=== PATIENT | male | born 1965 | race Caucasian/White ===

== ENCOUNTER 2025-03-21 11:19 | Emergency (ER) | payer OTHER ==
[~2025-03-21] VITALS: Ht 165.1 cm; Wt 65.9 kg
[2025-03-21] MEDS ORDERED: LEVOTHYROXINE25 MC1 PO (11:46)
[2025-03-21] MEDS ORDERED: LIPITOR10 MG PO (11:46)
[2025-03-21] MEDS ORDERED: VITAMIN D325 MC2 PO (11:47)
[2025-03-21 11:56] LABS: ALT (SGPT) 55.0 U/L (14-59); AST (SGOT) 42.0 U/L (15-37); GLOMERULAR FILTRATION RATE,EST 64.0 mL/min (>60); PROTEIN, TOTAL 8.1 g/dL (6.4-8.2); UREA NITROGEN 10.0 mg/dL (7-18)
[2025-03-21 12:15] LABS: BASOPHILS 0.4 % (0.2-1.2); EOSINOPHILS 0.3 % (0.8-7.0); LYMPHOCYTES 5.3 % (21.8-53.1); MCH 21.0 PG (25.7-32.2); MCHC 30.2 g/dL (32.3-36.5); MCV 69.6 fL (79.0-92.2); MONOCYTES 8.8 % (5.3-12.2); NEUTROPHILS 84.7 % (34.0-67.9); RBC 4.67 M/uL (4.63-6.08)
[2025-03-21] MEDS ORDERED: SODIUM CHLORIDE 0.9% 1,000 ML IV PRN (12:15)
[2025-03-21 14:46] LABS: BLOOD/HGB, URINE LARGE (Negative); KETONE, URINE TRACE (Negative); LEUK ESTERASE, URINE TRACE (negative); NITRITE, URINE NEGATIVE (negative)
[2025-03-21 14:51] LABS: CRYSTALS, URINE NONE SEEN (0-1+); EPITHELIAL CELLS, URINE TRANSITIONAL 1+ /lpf (0-1+)
[2025-03-21 14:52] LABS: BACTERIA, URINE 1+ /hpf (negative); CASTS, URINE NONE SEEN \\lpf; REFLEX CULTURE, URINE Yes (No)
[2025-03-21] MEDS ORDERED: MORPHINE SULFATE 4 MG/ML VIAL IV ONE (15:30)
[2025-03-21] MEDS ORDERED: LIDOCAINE 2% VISCOUS 6 ML SYR TOP ONE (16:30)
[2025-04-25] MEDS ORDERED: CEFDINIR300 MG PO (03:55)
[2025-05-02] MEDS ORDERED: OXYCODONE HCL5 M1 PO (10:52)
[2025-05-02] MEDS ORDERED: CEFTRIAXONE2 G1 INJ (10:53)
[2025-05-06] MEDS ORDERED: TACTINAL325 MG PO (16:26)
[2025-05-06] MEDS ORDERED: MOTRIN IB200 MG PO (16:27)
[2025-05-06] MEDS ORDERED: FERROUS GLUCON324 M1 PO (16:31)
[2025-05-06] MEDS ORDERED: ONDANSETRON ODT8 MG PO (16:32)
[2025-05-06] MEDS ORDERED: PHENERGAN25 MG/1 M1 INJ (16:33)
[2025-05-06] MEDS ORDERED: SENNA8.6 MG PO (16:34)
[2025-05-06] MEDS ORDERED: MIRALAX119 GM PO (16:36)
[2025-05-06] MEDS ORDERED: DOCUSATE SODIU250 MG PO (16:36)
[2025-05-07] MEDS ORDERED: MEROPENEM1 GM IV ×2 (09:35→12:24)
[2025-05-16] MEDS ORDERED: TYLENOL325 MG PO (11:57)
[2025-05-16] MEDS ORDERED: OXYCODONE HCL5 M3 PO (12:05)
== END 2025-03-21 19:09 | disposition short-term general hospital (02) ==
LOC: ED 11:19
PROVIDERS: Emergency Medicine
DX: A41.9 Sepsis, unspecified organism (principal); N13.6 Pyonephrosis; C22.8 Malignant neoplasm of liver, primary, unspecified as to type; Z79.899 Other long term (current) drug therapy
CPT/HCPCS: 36415; 51702; 74177; 80053; 81001; 83605; 83690; 85025; 85060; 87040; 87077; 87088; 87186; 96365; 96375; 99291; 99292; J0696; J2270; J2405; J7030; Q9967

== ENCOUNTER 2025-04-22 02:28 | Emergency (ER) | payer OTHER ==
[~2025-04-22] VITALS: Ht 165.1 cm; Wt 72.5 kg
[~2025-04-22 02:28] MED LIST: LEVOTHYROXINE25 MC1 PO; LIPITOR10 MG PO; VITAMIN D325 MC2 PO
[2025-04-22 02:45] LABS: BASOPHILS 0.5 % (0.2-1.2); EOSINOPHILS 1.7 % (0.8-7.0); LYMPHOCYTES 5.1 % (21.8-53.1); MCH 20.2 PG (25.7-32.2); MCHC 30.0 g/dL (32.3-36.5); MCV 67.5 fL (79.0-92.2); MONOCYTES 9.7 % (5.3-12.2); NEUTROPHILS 82.3 % (34.0-67.9); RBC 4.15 M/uL (4.63-6.08)
[2025-04-22 03:00] LABS: SMEAR REVIEW BLOOD SEE COMMENTS
[2025-04-22 03:04] LABS: INR 1.28 (0.80-1.30); PROTIME 15.2 Sec (11.2-14.2)
[2025-04-22 03:05] LABS: ALT (SGPT) 27.0 U/L (14-59); AST (SGOT) 25.0 U/L (15-37); GLOMERULAR FILTRATION RATE,EST 70.0 mL/min (>60); PROTEIN, TOTAL 7.6 g/dL (6.4-8.2); UREA NITROGEN 17.0 mg/dL (7-18)
[2025-04-22 03:08] LABS: BLOOD/HGB, URINE LARGE (Negative); KETONE, URINE NEGATIVE (Negative); LEUK ESTERASE, URINE LARGE (negative); NITRITE, URINE NEGATIVE (negative)
[2025-04-22 03:08] LABS: LACTIC ACID, BLOOD 2.0 mmol/L (0.4-2.0)
[2025-04-22 03:13] LABS: EPITHELIAL CELLS, URINE SQUAMOUS 1+ /lpf (0-1+)
[2025-04-22 03:14] LABS: BACTERIA, URINE 1+ /hpf (negative); CASTS, URINE NONE SEEN \\lpf; CRYSTALS, URINE NONE SEEN (0-1+); REFLEX CULTURE, URINE Yes (No)
[2025-04-22] MEDS ORDERED: SODIUM CHLORIDE 0.9% 1,000 ML IV SCH (03:15)
[2025-04-22] MEDS ORDERED: MACROBID 100 M100 MG PO (04:24)
[2025-04-22] MEDS ORDERED: CIPRO500 MG PO (04:24)
[2025-04-22] MEDS ORDERED: NITROFURANTOIN MONOHYD MACROCR 100 MG CAP PO ONE (04:30)
[2025-04-22] MEDS ORDERED: LIDOCAINE 2% VISCOUS 6 ML SYR TOP ONE (05:00)
[2025-04-22] MEDS ORDERED: OXYCODONE/APAP 5/325 TAB PO ONE (05:00)
[2025-04-25] MEDS ORDERED: CEFDINIR300 MG PO (03:55)
[2025-05-02] MEDS ORDERED: OXYCODONE HCL5 M1 PO (10:52)
[2025-05-02] MEDS ORDERED: CEFTRIAXONE2 G1 INJ (10:53)
[2025-05-06] MEDS ORDERED: TACTINAL325 MG PO (16:26)
[2025-05-06] MEDS ORDERED: MOTRIN IB200 MG PO (16:27)
[2025-05-06] MEDS ORDERED: FERROUS GLUCON324 M1 PO (16:31)
[2025-05-06] MEDS ORDERED: ONDANSETRON ODT8 MG PO (16:32)
[2025-05-06] MEDS ORDERED: PHENERGAN25 MG/1 M1 INJ (16:33)
[2025-05-06] MEDS ORDERED: SENNA8.6 MG PO (16:34)
[2025-05-06] MEDS ORDERED: DOCUSATE SODIU250 MG PO (16:36)
[2025-05-06] MEDS ORDERED: MIRALAX119 GM PO (16:36)
[2025-05-07] MEDS ORDERED: MEROPENEM1 GM IV ×2 (09:35→12:24)
[2025-05-16] MEDS ORDERED: TYLENOL325 MG PO (11:57)
[2025-05-16] MEDS ORDERED: OXYCODONE HCL5 M3 PO (12:05)
== END 2025-04-22 05:35 | disposition home or self-care (01) ==
LOC: ED 02:28
PROVIDERS: Emergency Medicine
DX: N39.0 Urinary tract infection, site not specified (principal); C67.9 Malignant neoplasm of bladder, unspecified; Z79.899 Other long term (current) drug therapy
CPT/HCPCS: 36415; 51702; 71045; 74177; 80053; 81001; 83605; 83690; 85025; 85060; 85610; 85730; 87040; 87088; 96365; 99285-25; A4311; J0696; J7030; Q9967

== ENCOUNTER 2025-05-01 07:37 | Observation (INO) | payer OTHER ==
[~2025-05-01] VITALS: Ht 165.1 cm; Wt 72.1 kg
[~2025-05-01 07:37] MED LIST changes: +CEFDINIR300 MG PO; +CIPRO500 MG PO; +MACROBID 100 M100 MG PO
--- OUTSIDE RECORDS SUMMARY | 2025-05-01 07:38 | XMS ---
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 Shelbi has no Care Guidelines for this patient. [facility] NOTE: Visits indicate total known visits. ED/C VISIT TRACKING (12 MO.) 05/01/2025 07:[address] [facility] [place] TYPE: Emergency COMPLAINT: - URINE PROBLEM 04/25/2025 00:07 [facility] TYPE: Emergency COMPLAINT: - UTI DIAGNOSES: - Anemia, unspecified - Hypothyroidism, unspecified - Malignant neoplasm of bladder, unspecified - Other jail (current) drug therapy - Urinary tract infection, site not specified 04/22/2025 02:28 [facility] TYPE: Emergency COMPLAINT: - POSS UTI DIAGNOSES: - Lower abdominal pain, unspecified - Malignant neoplasm of bladder, unspecified - Other jail (current) drug therapy - Urinary tract infection, site not specified 03/21/2025 11:20 [facility] TYPE: Emergency COMPLAINT: - BLADDER PAIN DIAGNOSES: - Malignant neoplasm of liver, primary, unspecified as to type - Other terminal clerk (current) drug therapy - Pyonephrosis - Sepsis, unspecified organism - Unspecified abdominal pain INPATIENT VISIT TRACKING (12 MO.) 03/21/2025 20:31 [facility] TYPE: Internal Medicine DIAGNOSES: - Acute cystitis with hematuria - Other specified disorders of bladder - Secondary malignant neoplasm of liver and intrahepatic bile duct - Hydronephrosis bilaterally - Urosepsis [email or web address]
[2025-05-01 07:56] LABS: BASOPHILS 0.5 % (0.2-1.2); EOSINOPHILS 1.0 % (0.8-7.0); LYMPHOCYTES 3.2 % (21.8-53.1); MCH 21.8 PG (25.7-32.2); MCHC 30.2 g/dL (32.3-36.5); MCV 72.3 fL (79.0-92.2); MONOCYTES 8.3 % (5.3-12.2); NEUTROPHILS 86.4 % (34.0-67.9); RBC 4.40 M/uL (4.63-6.08)
[2025-05-01 08:17] LABS: ALT (SGPT) 33.0 U/L (14-59); AST (SGOT) 32.0 U/L (15-37); GLOMERULAR FILTRATION RATE,EST 89.0 mL/min (>60); INR 1.25 (0.80-1.30); PROTEIN, TOTAL 7.3 g/dL (6.4-8.2); PROTIME 14.9 Sec (11.2-14.2); UREA NITROGEN 12.0 mg/dL (7-18)
[2025-05-01 08:21] LABS: LACTIC ACID, BLOOD 2.1 mmol/L (0.4-2.0)
[2025-05-01] MEDS ORDERED: SODIUM CHLORIDE 0.9% 1,000 ML IV PRN (09:00)
[2025-05-01] MEDS ORDERED: fentaNYL citrate 100 MCG/2 ML VIAL IV ONE (10:30)
[2025-05-01] MEDS ORDERED: LIDOCAINE 2% VISCOUS 6 ML SYR TOP ONE ×2 (10:30→16:45)
[2025-05-01 10:55] LABS: BLOOD/HGB, URINE LARGE (Negative); KETONE, URINE SMALL (Negative); LEUK ESTERASE, URINE MODERATE (negative); NITRITE, URINE POSITIVE (negative)
[2025-05-01 11:01] LABS: BACTERIA, URINE RARE /hpf (negative); CRYSTALS, URINE NONE SEEN (0-1+); EPITHELIAL CELLS, URINE 0 /lpf (0-1+)
[2025-05-01 11:02] LABS: CASTS, URINE NONE SEEN \\lpf; REFLEX CULTURE, URINE No (No)
[2025-05-01 11:14] LABS: INFLUENZA B NAA NEGATIVE (NEGATIVE); RESPIRATORY SYNCYTIAL VIR NAA NEGATIVE (NEGATIVE)
[2025-05-01] MEDS ORDERED: SODIUM CHLORIDE 0.9% 1,000 ML IV SCH (11:15)
[2025-05-01] MEDS ORDERED: ACETAMINOPHEN 325 MG TAB PO PRN (11:15)
[2025-05-01] MEDS ORDERED: PHARMACY RENAL DOSE ADJUSTMENT 1 DOSE MISC PO SCH (12:00)
[2025-05-01 12:37] VITALS: BP 124/84
[2025-05-01] MEDS ORDERED: OXYCODONE HCL 5 MG TAB PO PRN (13:30)
[2025-05-01 14:13] VITALS: BP 124/84
[2025-05-01] MEDS ORDERED: LORazepam 2 MG/ML VIAL IV ONE (16:45)
[2025-05-01] MEDS ORDERED: TRANEXAMIC ACID IN NACL,ISO-OS 1,000 MG/100 ML PIGGYBACK IV SCH (16:45)
[2025-05-01 17:15] LABS: BASOPHILS 0.3 % (0.2-1.2); EOSINOPHILS 0.4 % (0.8-7.0); LYMPHOCYTES 3.1 % (21.8-53.1); MCH 21.8 PG (25.7-32.2); MCHC 30.4 g/dL (32.3-36.5); MCV 71.8 fL (79.0-92.2); MONOCYTES 7.5 % (5.3-12.2); NEUTROPHILS 88.3 % (34.0-67.9); RBC 4.12 M/uL (4.63-6.08)
[2025-05-01 18:22] VITALS: BP 132/77
[2025-05-01 21:07] VITALS: BP 127/71
[2025-05-01 21:19] VITALS: BP 127/71
[2025-05-02 01:59] VITALS: BP 116/70
[2025-05-02 02:14] VITALS: BP 116/70
[2025-05-02 05:38] LABS: BASOPHILS 0.7 % (0.2-1.2); EOSINOPHILS 2.6 % (0.8-7.0); LYMPHOCYTES 8.1 % (21.8-53.1); MCH 22.0 PG (25.7-32.2); MCHC 30.1 g/dL (32.3-36.5); MCV 73.1 fL (79.0-92.2); MONOCYTES 10.4 % (5.3-12.2); NEUTROPHILS 77.7 % (34.0-67.9); RBC 3.91 M/uL (4.63-6.08)
[2025-05-02 06:00] VITALS: BP 133/76
[2025-05-02 06:01] VITALS: BP 133/76
[2025-05-02 06:09] LABS: ALT (SGPT) 29.0 U/L (14-59); AST (SGOT) 28.0 U/L (15-37); GLOMERULAR FILTRATION RATE,EST 101.0 mL/min (>60); PHOSPHORUS, INORGANIC 3.5 mg/dL (2.5-4.9); PROTEIN, TOTAL 6.5 g/dL (6.4-8.2); UREA NITROGEN 11.0 mg/dL (7-18)
[2025-05-02] MEDS ORDERED: LEVOTHYROXINE SODIUM 25 MCG TAB PO SCH (07:00)
[2025-05-02 09:52] VITALS: BP 116/74
[2025-05-02] MEDS ORDERED: OXYCODONE HCL5 M1 PO ×2 (10:52)
[2025-05-02] MEDS ORDERED: CEFTRIAXONE2 G1 INJ ×2 (10:53)
[2025-05-02 11:01] VITALS: BP 116/74
[2025-05-16] MEDS ORDERED: TYLENOL325 MG PO (11:57)
[2025-05-16] MEDS ORDERED: OXYCODONE HCL5 M3 PO (12:05)
== END 2025-05-02 11:37 | disposition home or self-care (01) ==
LOC: ED 07:37 → MS 07:38
PROVIDERS: Emergency Medicine; ADMIT Family Medicine; ATTEND Family Medicine
DX: N39.0 Urinary tract infection, site not specified (principal); A41.9 Sepsis, unspecified organism; R33.9 Retention of urine, unspecified; C79.11 Secondary malignant neoplasm of bladder; E03.9 Hypothyroidism, unspecified; E78.5 Hyperlipidemia, unspecified; Z88.0 Allergy status to penicillin; Z79.890 Hormone replacement therapy; Z79.899 Other long term (current) drug therapy
CPT/HCPCS: 36415; 51700; 51798; 80053; 81001; 83605; 83735; 84100; 85025; 85060; 85610; 85730; 87040; 87088; 87502; 96365; 96366; 96375; 96376; 99285-25; A9270; G0378; J0696; J2405; J3010; J7030; U0002

== ENCOUNTER 2025-05-02 15:39 | Emergency (ER) | payer OTHER ==
[~2025-05-02] VITALS: Ht 165.1 cm; Wt 72.1 kg
[~2025-05-02 15:39] MED LIST changes: +CEFTRIAXONE2 G1 INJ; +OXYCODONE HCL5 M1 PO
--- OUTSIDE RECORDS SUMMARY | 2025-05-02 15:46 | XMS ---
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 Shelbi has no Care Guidelines for this patient. Kathy V[facility] COUNT ([address] [facility] NOTE: Visits indicate total known visits. ED/C VISIT TRACKING (12 MO.) 05/02/2025 15:[address] [facility] [address] [facility] [place] TYPE: Emergency COMPLAINT: - FEVER 05/01/2025 07:37 [facility] TYPE: Emergency COMPLAINT: - URINE PROBLEM 04/25/2025 00:07 [facility] TYPE: Emergency COMPLAINT: - UTI DIAGNOSES: - Anemia, unspecified - Hypothyroidism, unspecified - Malignant neoplasm of bladder, unspecified - Other buttermaker continuous churn (current) drug therapy - Urinary tract infection, site not specified 04/22/2025 02:28 [facility] TYPE: Emergency COMPLAINT: - POSS UTI DIAGNOSES: - Lower abdominal pain, unspecified - Malignant neoplasm of bladder, unspecified - Other penitentiary (current) drug therapy - Urinary tract infection, site not specified 03/21/2025 11:20 [facility] TYPE: Emergency COMPLAINT: - BLADDER PAIN DIAGNOSES: - Malignant neoplasm of liver, primary, unspecified as to type - Other penitentiary (current) drug therapy - Pyonephrosis - Sepsis, unspecified organism - Unspecified abdominal pain INPATIENT VISIT TRACKING (12 MO.) 05/01/2025 07:38 [facility] TYPE: Observation COMPLAINT: - UTI 03/21/2025 20:31 [facility] TYPE: Internal Medicine DIAGNOSES: - Acute cystitis with hematuria - Other specified disorders of bladder - Secondary malignant neoplasm of liver and intrahepatic bile duct - Hydronephrosis bilaterally - Urosepsis [email or web address]
[2025-05-02] MEDS ORDERED: ACETAMINOPHEN 500 MG TAB PO ONE (16:45)
[2025-05-02] MEDS ORDERED: OXYCODONE HCL 5 MG TAB PO ONE (17:30)
[2025-05-02] MEDS ORDERED: CIPROFLOXACIN 500 MG TAB PO ONE (18:00)
[2025-05-06] MEDS ORDERED: TACTINAL325 MG PO (16:26)
[2025-05-06] MEDS ORDERED: MOTRIN IB200 MG PO (16:27)
[2025-05-06] MEDS ORDERED: FERROUS GLUCON324 M1 PO (16:31)
[2025-05-06] MEDS ORDERED: ONDANSETRON ODT8 MG PO (16:32)
[2025-05-06] MEDS ORDERED: PHENERGAN25 MG/1 M1 INJ (16:33)
[2025-05-06] MEDS ORDERED: SENNA8.6 MG PO (16:34)
[2025-05-06] MEDS ORDERED: DOCUSATE SODIU250 MG PO (16:36)
[2025-05-06] MEDS ORDERED: MIRALAX119 GM PO (16:36)
[2025-05-07] MEDS ORDERED: MEROPENEM1 GM IV ×2 (09:35→12:24)
[2025-05-16] MEDS ORDERED: TYLENOL325 MG PO (11:57)
[2025-05-16] MEDS ORDERED: OXYCODONE HCL5 M3 PO (12:05)
== END 2025-05-02 18:22 | disposition other institution, planned readmission (95) ==
LOC: ED 15:39
DX: R50.9 Fever, unspecified (principal); Z88.0 Allergy status to penicillin; Z79.2 Long term (current) use of antibiotics
CPT/HCPCS: 99283; A9270

== ENCOUNTER 2025-05-04 18:39 | Inpatient (IN) | payer OTHER ==
[~2025-05-04] VITALS: Ht 165.1 cm; Wt 75.0 kg
--- OUTSIDE RECORDS SUMMARY | 2025-05-04 18:46 | XMS ---
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 Shelbi has no Care Guidelines for this patient. Kathy VISIT COUNT (12 MO.) 6 [facility] TOTAL 6 NOTE: Visits indicate total known visits. ED/C VISIT TRACKING (12 MO.) [facility] 18[facility]: [facility] COMPLAINT: - ABNORMAL LABS 05/02/2025 15:39 [facility] TYPE: Emergency COMPLAINT: - FEVER DIAGNOSES: - Fever, unspecified - Headache with orthostatic component, not elsewhere classified 05/01/2025 07:37 [facility] TYPE: Emergency COMPLAINT: - URINE PROBLEM 04/25/2025 00:07 [facility] TYPE: Emergency COMPLAINT: - UTI DIAGNOSES: - Anemia, unspecified - Hypothyroidism, unspecified - Malignant neoplasm of bladder, unspecified - Other residential (current) drug therapy - Urinary tract infection, site not specified 04/22/2025 02:28 [facility] TYPE: Emergency COMPLAINT: - POSS UTI DIAGNOSES: - Lower abdominal pain, unspecified - Malignant neoplasm of bladder, unspecified - Other residential (current) drug therapy - Urinary tract infection, site not specified 03/21/2025 11:20 [facility] TYPE: Emergency COMPLAINT: - BLADDER PAIN DIAGNOSES: - Malignant neoplasm of liver, primary, unspecified as to type - Other residential (current) drug therapy - Pyonephrosis - Sepsis, unspecified organism - Unspecified abdominal pain INPATIENT VISIT TRACKING (12 MO.) 05/01/2025 07:38 [facility] TYPE: Observation COMPLAINT: - UTI DIAGNOSES: - Allergy status to penicillin - Hormone replacement therapy - Hyperlipidemia, unspecified - Hypothyroidism, unspecified - Other residential (current) drug therapy - Retention of urine, unspecified - Secondary malignant neoplasm of bladder - Sepsis, unspecified organism - Urinary tract infection, site not specified 03/21/2025 20:31 [facility] TYPE: Internal Medicine DIAGNOSES: - Acute cystitis with hematuria - Other specified disorders of bladder - Secondary malignant neoplasm of liver and intrahepatic bile duct - Hydronephrosis bilaterally - Urosepsis [email or web address]
[2025-05-04] MEDS ORDERED: DAPTOmycin 500 MG/10 ML VIAL IV ONE (20:45)
[2025-05-04] MEDS ORDERED: SODIUM CHLORIDE 0.9% 1,000 ML IV ONE (20:45)
[2025-05-04 21:05] LABS: MCH 21.9 PG (25.7-32.2); MCHC 30.9 g/dL (32.3-36.5); MCV 71.0 fL (79.0-92.2); RBC 3.83 M/uL (4.63-6.08)
[2025-05-04 21:16] LABS: BLOOD/HGB, URINE LARGE (Negative); KETONE, URINE NEGATIVE (Negative); LEUK ESTERASE, URINE MODERATE (negative); NITRITE, URINE NEGATIVE (negative)
[2025-05-04 21:18] LABS: BANDS, MANUAL DIFF 1; LYMPHOCYTES, MANUAL DIFF 3; NEUTROPHILS, MANUAL DIFF 96
[2025-05-04 21:24] LABS: INR 1.49 (0.80-1.30); PROTIME 17.1 Sec (11.2-14.2)
[2025-05-04 21:25] LABS: ALT (SGPT) 28.0 U/L (14-59); AST (SGOT) 37.0 U/L (15-37); GLOMERULAR FILTRATION RATE,EST 89.0 mL/min (>60); PROTEIN, TOTAL 6.6 g/dL (6.4-8.2); UREA NITROGEN 9.0 mg/dL (7-18)
[2025-05-04 21:26] LABS: EPITHELIAL CELLS, URINE SQUAMOUS 1+ /lpf (0-1+)
[2025-05-04 21:27] LABS: BACTERIA, URINE 3+ /hpf (negative); CASTS, URINE NONE SEEN \\lpf; CRYSTALS, URINE NONE SEEN (0-1+); REFLEX CULTURE, URINE Yes (No)
[2025-05-04 21:29] LABS: LACTIC ACID, BLOOD 1.1 mmol/L (0.4-2.0)
[2025-05-04] MEDS ORDERED: MORPHINE SULFATE 4 MG/ML VIAL IV ONE (22:30)
[2025-05-04 22:41] LABS: INFLUENZA B NAA NEGATIVE (NEGATIVE); RESPIRATORY SYNCYTIAL VIR NAA NEGATIVE (NEGATIVE)
[2025-05-05] VITALS (8 sets, daily range): BP systolic 98–141; BP diastolic 60–88
[2025-05-05] MEDS ORDERED: MEROPENEM 1,000 MG in DEXTROSE 5% 100 ML IV SCH ×2 (00:30→06:00)
[2025-05-05] MEDS ORDERED: ACETAMINOPHEN 500 MG TAB PO PRN (02:00)
[2025-05-05] MEDS ORDERED: HYDROmorphone HCL 1 MG/ML SYR IV PRN ×2 (02:00→05:30)
[2025-05-05] MEDS ORDERED: KETOROLAC TROMETHAMINE 15 MG/ML VIAL IV PRN (02:00)
[2025-05-05] MEDS ORDERED: LACTATED RINGER'S 1,000 ML IV SCH ×2 (02:00→08:00)
[2025-05-05] MEDS ORDERED: PROPRANOLOL HCL 20 MG TAB PO ONE (05:15)
[2025-05-05] MEDS ORDERED: POLYETHYLENE GLYCOL 3350 1 PACKET PO PRN (08:00)
[2025-05-05] MEDS ORDERED: ACETAMINOPHEN 325 MG TAB PO PRN (08:00)
[2025-05-05 08:15] LABS: MCH 21.9 PG (25.7-32.2); MCHC 30.6 g/dL (32.3-36.5); MCV 71.5 fL (79.0-92.2); RBC 3.79 M/uL (4.63-6.08)
[2025-05-05 08:41] LABS: EOSINOPHILS, MANUAL DIFF 1; LYMPHOCYTES, MANUAL DIFF 3; MONOCYTES, MANUAL DIFF 1; NEUTROPHILS, MANUAL DIFF 95
[2025-05-05 08:44] LABS: ALT (SGPT) 20.0 U/L (14-59); AST (SGOT) 36.0 U/L (15-37); GLOMERULAR FILTRATION RATE,EST 92.0 mL/min (>60); PROTEIN, TOTAL 6.2 g/dL (6.4-8.2); UREA NITROGEN 11.0 mg/dL (7-18)
[2025-05-05] MEDS ORDERED: MEROPENEM 1,000 MG in DEXTROSE 5% 100 ML IV ONE (09:00)
[2025-05-05] MEDS ORDERED: PANTOPRAZOLE SODIUM 40 MG TABEC PO SCH (09:00)
[2025-05-05] MEDS ORDERED: ENOXAPARIN SODIUM 40 MG/0.4 ML SYR SUB-Q SCH (09:00)
[2025-05-05] MEDS ORDERED: PHARMACY RENAL DOSE ADJUSTMENT 1 DOSE MISC PO SCH (12:00)
[2025-05-05] MEDS ORDERED: OXYCODONE HCL 5 MG TAB PO PRN (15:00)
[2025-05-05] MEDS ORDERED: ATORVASTATIN 10 MG TAB PO SCH (17:00)
--- NOTE | 2025-05-05 17:47 | EKG ---
[facility] [address] [facility] [place] [address] Signed Normal sinus rhythm Nonspecific T wave abnormality Prolonged QT Abnormal ECG No previous ECGs available Confirmed by Paris Sanchez DO ([id number]) on 05/05/2025 5:47:21 PM Electronically Signed By: PARIS SANCHEZ DO 05/05/25 1747 PATIENT NAME: EMETERIO GAUTAM Electrocardiogram DATE OF : 63 PHYSICIAN: PARIS SANCHEZ DO REPORT #: [id number] REPORT IS CONFIDENTIAL AND NOT TO BE RELEASED WITHOUT AUTHORIZATION
[2025-05-05] MEDS ORDERED: MELATONIN 3 MG TAB PO PRN (21:00)
[2025-05-06] VITALS (12 sets, daily range): BP systolic 108–144; BP diastolic 55–79
[2025-05-06 05:37] LABS: BASOPHILS 0.2 % (0.2-1.2); EOSINOPHILS 1.5 % (0.8-7.0); LYMPHOCYTES 4.1 % (21.8-53.1); MCH 21.9 PG (25.7-32.2); MCHC 30.5 g/dL (32.3-36.5); MCV 71.6 fL (79.0-92.2); MONOCYTES 5.7 % (5.3-12.2); NEUTROPHILS 87.9 % (34.0-67.9); RBC 3.66 M/uL (4.63-6.08)
[2025-05-06 05:49] LABS: SMEAR REVIEW BLOOD SEE COMMENTS
[2025-05-06 06:05] LABS: ALT (SGPT) 30.0 U/L (14-59); AST (SGOT) 44.0 U/L (15-37); GLOMERULAR FILTRATION RATE,EST 99.0 mL/min (>60); PROTEIN, TOTAL 6.1 g/dL (6.4-8.2); UREA NITROGEN 12.0 mg/dL (7-18)
[2025-05-06] MEDS ORDERED: LEVOTHYROXINE SODIUM 25 MCG TAB PO SCH (07:00)
[2025-05-06] MEDS ORDERED: FENTANYL 12 MCG/HR 1 EA TDSY TD SCH (11:45)
[2025-05-06] MEDS ORDERED: TACTINAL325 MG PO ×2 (16:26)
[2025-05-06] MEDS ORDERED: MOTRIN IB200 MG PO ×2 (16:27)
[2025-05-06] MEDS ORDERED: FERROUS GLUCON324 M1 PO ×2 (16:31)
[2025-05-06] MEDS ORDERED: ONDANSETRON ODT8 MG PO ×2 (16:32)
[2025-05-06] MEDS ORDERED: PHENERGAN25 MG/1 M1 INJ ×2 (16:33)
[2025-05-06] MEDS ORDERED: SENNA8.6 MG PO ×2 (16:34)
[2025-05-06] MEDS ORDERED: MIRALAX119 GM PO ×2 (16:36)
[2025-05-06] MEDS ORDERED: DOCUSATE SODIU250 MG PO ×2 (16:36)
[2025-05-07 01:19] VITALS: BP 126/73
[2025-05-07 01:23] VITALS: BP 126/73
[2025-05-07 06:33] VITALS: BP 146/83
[2025-05-07 06:35] VITALS: BP 146/83
[2025-05-07 08:07] LABS: BASOPHILS 0.4 % (0.2-1.2); EOSINOPHILS 2.2 % (0.8-7.0); LYMPHOCYTES 4.3 % (21.8-53.1); MCH 21.7 PG (25.7-32.2); MCHC 30.7 g/dL (32.3-36.5); MCV 70.7 fL (79.0-92.2); MONOCYTES 9.0 % (5.3-12.2); NEUTROPHILS 83.5 % (34.0-67.9); RBC 3.96 M/uL (4.63-6.08)
[2025-05-07 08:28] LABS: ALT (SGPT) 62.0 U/L (14-59); AST (SGOT) 60.0 U/L (15-37); GLOMERULAR FILTRATION RATE,EST 99.0 mL/min (>60); PROTEIN, TOTAL 6.3 g/dL (6.4-8.2); UREA NITROGEN 8.0 mg/dL (7-18)
[2025-05-07] MEDS ORDERED: POTASSIUM CHLORIDE 10 MEQ TABCR PO ONE (09:30)
[2025-05-07] MEDS ORDERED: MEROPENEM1 GM IV ×5 (09:35→12:27)
[2025-05-07 09:58] VITALS: BP 129/79
[2025-05-07 10:38] VITALS: BP 129/79
[2025-05-16] MEDS ORDERED: TYLENOL325 MG PO (11:57)
[2025-05-16] MEDS ORDERED: OXYCODONE HCL5 M3 PO (12:05)
== END 2025-05-07 10:30 | disposition home or self-care (01) | DRG 872 ==
LOC: ED 18:39 → MS 18:41
PROVIDERS: Family Medicine; ADMIT Student in an Organized Health Care Education/Training Program; ATTEND Student in an Organized Health Care Education/Training Program
DX: A41.9 Sepsis, unspecified organism (principal); N39.0 Urinary tract infection, site not specified; E78.5 Hyperlipidemia, unspecified; C67.9 Malignant neoplasm of bladder, unspecified; N13.9 Obstructive and reflux uropathy, unspecified; E03.9 Hypothyroidism, unspecified; Z79.899 Other long term (current) drug therapy; Z79.891 Long term (current) use of opiate analgesic; Z88.0 Allergy status to penicillin; Z79.890 Hormone replacement therapy
CPT/HCPCS: 36415; 71045; 80053; 81001; 83605; 83735; 85025; 85060; 85610; 87040; 87088; 87502; 93005; 93010; 96374; 96375; 97161; 97165; 97530; 99285-25; A9270; G0378; J0878; J1171; J1650; J1885; J2185; J2270; J2405; J7030; J7050; J7121; U0002